=== PATIENT | male | born 1995 | race Caucasian/White ===

== ENCOUNTER 2022-08-13 18:57 | Emergency (ER) | payer MEDICAID, OTHER ==
[~2022-08-13] VITALS: Ht 170.2 cm; Wt 85.7 kg
[2022-08-13 19:35] VITALS: BP 148/95
--- NOTE | 2022-08-13 19:41 | NUR ---
PT TAKEN TO BED 6
--- NOTE | 2022-08-13 19:47 | NUR ---
MICKEY JEAN AT BEDSIDE
[2022-08-13] MEDS ORDERED: KETOROLAC 30 MG/ML VIAL IM ONE (19:50)
[2022-08-13] MEDS ORDERED: LIDOCAINE MPF 1% 10 MG/ML VIAL INJ ONE (19:50)
--- NOTE | 2022-08-13 20:02 | NUR ---
X-Ray at bedside.
--- NOTE | 2022-08-13 20:22 | NUR ---
Dr. Fabian examining patient.
[2022-08-13 20:25] VITALS: BP 148/95
--- NOTE | 2022-08-13 20:35 | NUR ---
27YR OLD MALE BIB SELF C/O DOG BITE TO R ARM. DOG WAS IN STREET PT TRIED TO APPROACH DOG TO SEE COLLAR, DOG BITE R ARM . SWELLING WITH SMALL LACERATION BITE SMITH. PAIN LEVEL 6/10. NO ACTIVE BLEEDING. UNKNOWN DOG BREED OR MORTGAGE SPECIALIST. NKDA NO MED HX
[2022-08-13] MEDS ORDERED: IBUP-1842 PO (20:50)
[2022-08-13] MEDS ORDERED: BACI1PAC6 TP (20:50)
[2022-08-13] MEDS ORDERED: AMOX-999 PO (20:50)
[2022-08-13] MEDS ORDERED: BACITRACIN OINT 500 UNITS/GM PKT TP ONE ×2 (20:55→20:56)
--- NOTE | 2022-08-13 21:12 | NUR ---
Patient discharged with v/s stable. Written and verbal after care instructions given and explained. Patient alert, oriented and verbalized understanding of instructions. Ambulatory with steady gait. All questions addressed prior to discharge. ID band removed. Patient advised to follow up with PMD. Rx of BACITRACIN OINT MOTRIN AUGMENTIN given.
--- NOTE | 2022-08-13 21:12 | NUR ---
Chart checked and completed.
== END 2022-08-13 21:12 | disposition home or self-care (01) ==
LOC: MED 18:57
DX: S51.811A Laceration without foreign body of right forearm, initial encounter (principal); Z79.899 Other long term (current) drug therapy; W54.0XXA Bitten by dog, initial encounter; Y93.89 Activity, other specified; Y92.89 Other specified places as the place of occurrence of the external cause; Y99.8 Other external cause status
CPT/HCPCS: 12001; 73090; 90471; 90715; 96372; 99284; J1885; J2001

== ENCOUNTER 2022-08-16 11:51 | Emergency (ER) | payer MEDICAID ==
[~2022-08-16] VITALS: Ht 170.2 cm; Wt 84.8 kg
[~2022-08-16 11:51] MED LIST: AMOX-999 PO; BACI1PAC6 TP; IBUP-1842 PO
[2022-08-16 12:04] VITALS: BP 143/85
--- NOTE | 2022-08-16 12:32 | NUR ---
27/M BIB SELF FOR RECHECK, PATIENT STATES HE HAD STITCHES PLACED TO RIGHT ARM HERE S/P DOG BITE 2 DAYS, TOLD TO RETURN TODAY TO CHECK ON HEALING. DENIES FEVERS OR WORSENING PAIN. NO OBVIOUS SIGNS OF INFECTION TO SITE.
[2022-08-16 12:39] VITALS: BP 143/85
--- NOTE | 2022-08-16 12:39 | NUR ---
Patient discharged with v/s stable. Written and verbal after care instructions ABOUT ANIMAL BITE given and explained. Patient verbalized understanding. Ambulatory with steady gait. All questions addressed prior to discharge. Advised to follow up with PMD.
== END 2022-08-16 12:39 | disposition home or self-care (01) ==
LOC: MED 11:51
DX: S51.812D Laceration without foreign body of left forearm, subsequent encounter (principal); Z82.49 Family history of ischemic heart disease and other diseases of the circulatory system; Z79.1 Long term (current) use of non-steroidal anti-inflammatories (NSAID); Z79.2 Long term (current) use of antibiotics; W54.0XXD Bitten by dog, subsequent encounter
CPT/HCPCS: 99281; 99282

== ENCOUNTER 2022-08-21 14:20 | Emergency (ER) | payer MEDICAID ==
[~2022-08-21] VITALS: Ht 170.2 cm; Wt 90.3 kg
[2022-08-21 14:37] VITALS: BP 139/76
--- NOTE | 2022-08-21 14:40 | NUR ---
Pt ambulated to [facility]
--- NOTE | 2022-08-21 15:10 | NUR ---
27 y/o M BIB self from home for suture removal seen here 08/13. Denies pain; states 10/29 discomfort. Slight swelling near suture site. Currently completing ABX; Ibuprofen AM with relief. PMH/Sx/Meds: Denies
[2022-08-21 15:18] VITALS: BP 158/60
== END 2022-08-21 15:18 | disposition home or self-care (01) ==
LOC: MED 14:20
DX: S51.831D Puncture wound without foreign body of right forearm, subsequent encounter (principal); Z79.899 Other long term (current) drug therapy; X58.XXXD Exposure to other specified factors, subsequent encounter
CPT/HCPCS: 99281